=== PATIENT | male | born 1940 | race African-American/Black ===

== ENCOUNTER 2021-09-04 15:52 | Inpatient (IN) ==
[2021-09-04 16:32] LABS: Hematocrit 30 % (42-52); Mean Corpuscular HGB Conc 33 g/dL (31-36); Mean Corpuscular Hemoglobin 33 pg (27-31); Mean Corpuscular Volume 98 fL (80-94); Mean Platelet Volume 7.5 fL (7.4-10.4); Platelet Count 220 10^3/uL (150-450); Red Blood Count 3.08 10^6 /uL (4.18-5.48); Red Cell Distribution Width 15 % (10-15); White Blood Count 1.6 10^3/uL (3.5-10.8)
[2021-09-04 16:36] LABS: ABS Neutrophils 0.4 10^3/ul (1.5-7.7)
[2021-09-04 16:50] LABS: ABS Lymphocytes 0.6 10^3/ul (1.0-4.8); ABS Monocytes 0.6 10^3/ul (0-0.8); Eosinophil % 0.6 %; Lymphocyte % 37.7 %; Nucleated Red Blood Cells % 1.4
[2021-09-04 16:53] LABS: Albumin 3.5 g/dL (3.2-5.2); Albumin/Globulin Ratio 1.2 (1-3); C Reactive Protein 53.18 mg/L (<8.01); Calcium 8.9 mg/dL (8.6-10.3); Globulin 2.9 g/dL (2-4); Potassium 4.2 mmol/L (3.5-5.0); Total Bilirubin 0.6 mg/dL (0.2-1.0); Total Protein 6.4 g/dL (6.4-8.9); eGFR CKD-EPI 86.4 (>60)
[2021-09-04 16:54] LABS: Troponin I 0.01 ng/mL (<0.03)
[2021-09-04] MEDS ORDERED: Iodixanol (CONTRAST) 320 MG/ML 100 ML SDV IV ONE (17:25)
[2021-09-04] MEDS ORDERED: Azithromycin 500 mg/250 ml NS 500 MG/250 ML BAG IVPB ONE (18:28)
[2021-09-04] MEDS ORDERED: cefTRIAXone 1 gm/50 mL NS BAG 1 GM/50 ML BAG IVPB ONE (18:28)
[2021-09-04 18:34] LABS: PCO2 Arterial 49 mmHg (35-45)
[2021-09-04 19:02] LABS: PO2 Arterial 49 mmHg (80-100)
[2021-09-04] MEDS ORDERED: Ondansetron 4 mg VIAL 2 MG/ML 2 ml VIAL IV PRN (20:06)
[2021-09-04] MEDS ORDERED: Nystatin TOP POWDER 15 GM BTL TOPICAL PRN (20:10)
[2021-09-04] MEDS: Carbidopa/Levodop 25/100 MG TAB PO SCH (23:04)
[2021-09-04] MEDS: Aspirin EC 81 mg TAB.EC (enteric coated) PO SCH (23:04)
[2021-09-04] MEDS: Enoxaparin 40 MG/0.4 ML SYR SUBCUT SCH (23:04)
[2021-09-05 06:07] LABS: Hematocrit 29 % (42-52); Hemoglobin 9.6 g/dL (14.0-18.0); Mean Corpuscular HGB Conc 33 g/dL (31-36); Mean Corpuscular Hemoglobin 32 pg (27-31); Mean Corpuscular Volume 97 fL (80-94); Mean Platelet Volume 7.8 fL (7.4-10.4); Platelet Count 211 10^3/uL (150-450); Red Cell Distribution Width 15 % (10-15); White Blood Count 2.2 10^3/uL (3.5-10.8)
[2021-09-05 06:23] LABS: Calcium 8.5 mg/dL (8.6-10.3); eGFR CKD-EPI 87.6 (>60)
[2021-09-05 09:14] LABS: ABS Lymphocytes 1.1 10^3/ul (1.0-4.8); ABS Monocytes 0.8 10^3/ul (0-0.8); ABS Neutrophils 0.3 10^3/ul (1.5-7.7); Eosinophil % 0.4 %; Lymphocyte % 48.6 %
[2021-09-05] MEDS: Carbidopa/Levodop 25/100 MG TAB PO SCH ×3 (09:22→20:36)
[2021-09-05] MEDS: Azithromycin 500 mg/250 ml NS 500 MG/250 ML BAG IVPB SCH (20:30)
[2021-09-05] MEDS: Aspirin EC 81 mg TAB.EC (enteric coated) PO SCH (20:35)
[2021-09-05] MEDS: Enoxaparin 40 MG/0.4 ML SYR SUBCUT SCH (20:36)
[2021-09-05] MEDS: cefTRIAXone 2 GM ADDV.VIAL 2 GM in NS 0.9% 100 ml BAG 100 ML IV SCH (21:58)
[2021-09-06 08:10] LABS: Calcium 8.2 mg/dL (8.6-10.3); Magnesium 1.8 mg/dL (1.9-2.7); Phosphorus 3.1 mg/dL (2.5-5.0); Potassium 3.9 mmol/L (3.5-5.0); eGFR CKD-EPI 89.2 (>60)
[2021-09-06 08:27] LABS: Hematocrit 28 % (42-52); Hemoglobin 9.1 g/dL (14.0-18.0); Mean Corpuscular HGB Conc 33 g/dL (31-36); Mean Corpuscular Hemoglobin 32 pg (27-31); Mean Corpuscular Volume 97 fL (80-94); Mean Platelet Volume 7.7 fL (7.4-10.4); Platelet Count 217 10^3/uL (150-450); Red Blood Count 2.87 10^6 /uL (4.18-5.48); Red Cell Distribution Width 15 % (10-15); White Blood Count 2.4 10^3/uL (3.5-10.8)
[2021-09-06] MEDS ORDERED: Pneumococcal Vac 23-Polyvalent IM ONE (09:00)
[2021-09-06] MEDS ORDERED: Flu vaccine *QUAD* 2021-22* 0.5 ML SYRINGE IM ONE (09:00)
[2021-09-06 09:12] LABS: Hypochromasia 1+
[2021-09-06 09:13] LABS: Basophilic Stippling 2+; Polychromasia 2+
[2021-09-06 09:17] LABS: ABS Lymphocytes 1.1 10^3/ul (1.0-4.8); ABS Monocytes 0.9 10^3/ul (0-0.8); ABS Neutrophils 0.3 10^3/ul (1.5-7.7); Eosinophil % 0.2 %; Nucleated Red Blood Cells % 1.2
[2021-09-06] MEDS: Carbidopa/Levodop 25/100 MG TAB PO SCH ×3 (10:31→20:46)
[2021-09-06] MEDS: Azithromycin 500 mg/250 ml NS 500 MG/250 ML BAG IVPB SCH (19:42)
[2021-09-06] MEDS: Aspirin EC 81 mg TAB.EC (enteric coated) PO SCH (20:46)
[2021-09-06] MEDS: Enoxaparin 40 MG/0.4 ML SYR SUBCUT SCH (20:47)
[2021-09-06] MEDS: cefTRIAXone 2 GM ADDV.VIAL 2 GM in NS 0.9% 100 ml BAG 100 ML IV SCH (21:28)
[2021-09-07 05:46] LABS: Hematocrit 27 % (42-52); Hemoglobin 8.7 g/dL (14.0-18.0); Mean Corpuscular HGB Conc 32 g/dL (31-36); Mean Corpuscular Hemoglobin 31 pg (27-31); Mean Corpuscular Volume 97 fL (80-94); Platelet Count 214 10^3/uL (150-450); Red Blood Count 2.79 10^6 /uL (4.18-5.48); Red Cell Distribution Width 15 % (10-15); White Blood Count 2.4 10^3/uL (3.5-10.8)
[2021-09-07 05:58] LABS: ABS Monocytes 0.9 10^3/ul (0-0.8); ABS Neutrophils 0.4 10^3/ul (1.5-7.7); Eosinophil % 0.3 %; Lymphocyte % 43.2 %; Nucleated Red Blood Cells % 0.6
[2021-09-07 06:05] LABS: Calcium 8.2 mg/dL (8.6-10.3); Magnesium 1.9 mg/dL (1.9-2.7); Potassium 3.8 mmol/L (3.5-5.0); eGFR CKD-EPI 89.9 (>60)
[2021-09-07] MEDS: Carbidopa/Levodop 25/100 MG TAB PO SCH ×3 (08:03→20:22)
[2021-09-07] MEDS ORDERED: Iodixanol (CONTRAST) 320 MG/ML 100 ML SDV IV ONE (12:21)
[2021-09-07] MEDS: cefTRIAXone 2 GM ADDV.VIAL 2 GM in NS 0.9% 100 ml BAG 100 ML IV SCH (20:21)
[2021-09-07] MEDS: Enoxaparin 40 MG/0.4 ML SYR SUBCUT SCH (20:21)
[2021-09-07] MEDS: Aspirin EC 81 mg TAB.EC (enteric coated) PO SCH (20:22)
[2021-09-07] MEDS: Azithromycin 500 mg/250 ml NS 500 MG/250 ML BAG IVPB SCH (21:04)
[2021-09-08 06:19] LABS: Hematocrit 28 % (42-52); Mean Corpuscular HGB Conc 33 g/dL (31-36); Mean Corpuscular Hemoglobin 31 pg (27-31); Mean Corpuscular Volume 96 fL (80-94); Platelet Count 230 10^3/uL (150-450); Red Blood Count 2.88 10^6 /uL (4.18-5.48); Red Cell Distribution Width 15 % (10-15); White Blood Count 2.4 10^3/uL (3.5-10.8)
[2021-09-08 06:41] LABS: Magnesium 1.9 mg/dL (1.9-2.7); eGFR CKD-EPI 91.4 (>60)
[2021-09-08] MEDS: Carbidopa/Levodop 25/100 MG TAB PO SCH ×3 (08:19→21:05)
[2021-09-08 08:58] LABS: ABS Lymphocytes 0.9 10^3/ul (1.0-4.8); ABS Monocytes 0.7 10^3/ul (0-0.8); ABS Neutrophils 0.8 10^3/ul (1.5-7.7); Eosinophil % 0.4 %; Lymphocyte % 37.3 %; Nucleated Red Blood Cells % 0.6
[2021-09-08 09:11] LABS: RBC Morphology Normal (Normal)
[2021-09-08 11:40] LABS: PSA Screening Total 36.313 ng/mL (0-4.000)
[2021-09-08] MEDS: cefTRIAXone 2 GM ADDV.VIAL 2 GM in NS 0.9% 100 ml BAG 100 ML IV SCH (21:00)
[2021-09-08] MEDS: Aspirin EC 81 mg TAB.EC (enteric coated) PO SCH (21:05)
[2021-09-08] MEDS: Enoxaparin 40 MG/0.4 ML SYR SUBCUT SCH (21:05)
[2021-09-09 06:47] LABS: Hematocrit 28 % (42-52); Mean Corpuscular HGB Conc 32 g/dL (31-36); Mean Corpuscular Hemoglobin 31 pg (27-31); Mean Corpuscular Volume 97 fL (80-94); Mean Platelet Volume 6.8 fL (7.4-10.4); Platelet Count 243 10^3/uL (150-450); Red Blood Count 2.87 10^6 /uL (4.18-5.48); Red Cell Distribution Width 15 % (10-15); White Blood Count 3.2 10^3/uL (3.5-10.8)
[2021-09-09 06:51] LABS: ABS Monocytes 0.7 10^3/ul (0-0.8); ABS Neutrophils 1.5 10^3/ul (1.5-7.7); Eosinophil % 0.2 %; Lymphocyte % 30.5 %; Nucleated Red Blood Cells % 0.4
[2021-09-09 07:15] LABS: Calcium 8.3 mg/dL (8.6-10.3); Magnesium 1.9 mg/dL (1.9-2.7); eGFR CKD-EPI 92.6 (>60)
[2021-09-09] MEDS: Carbidopa/Levodop 25/100 MG TAB PO SCH ×3 (10:25→21:54)
[2021-09-09] MEDS ORDERED: Furosemide 20 mg/2 ml IV VIAL IV ONE (11:12)
[2021-09-09] MEDS: Aspirin EC 81 mg TAB.EC (enteric coated) PO SCH (21:54)
[2021-09-09] MEDS: Enoxaparin 40 MG/0.4 ML SYR SUBCUT SCH (21:54)
[2021-09-09] MEDS: cefTRIAXone 2 GM ADDV.VIAL 2 GM in NS 0.9% 100 ml BAG 100 ML IV SCH (21:58)
[2021-09-10] MEDS: Carbidopa/Levodop 25/100 MG TAB PO SCH ×3 (08:33→21:00)
[2021-09-10 08:48] LABS: Hematocrit 27 % (42-52); Hemoglobin 8.9 g/dL (14.0-18.0); Mean Corpuscular HGB Conc 33 g/dL (31-36); Mean Corpuscular Hemoglobin 31 pg (27-31); Mean Corpuscular Volume 96 fL (80-94); Platelet Count 262 10^3/uL (150-450); Red Blood Count 2.85 10^6 /uL (4.18-5.48); Red Cell Distribution Width 16 % (10-15); White Blood Count 4.4 10^3/uL (3.5-10.8)
[2021-09-10 09:13] LABS: Calcium 8.5 mg/dL (8.6-10.3); Magnesium 1.8 mg/dL (1.9-2.7); Potassium 3.8 mmol/L (3.5-5.0); eGFR CKD-EPI 89.9 (>60)
[2021-09-10 09:50] LABS: ABS Lymphocytes 0.9 10^3/ul (1.0-4.8); ABS Monocytes 0.7 10^3/ul (0-0.8); ABS Neutrophils 2.8 10^3/ul (1.5-7.7); Eosinophil % 0.3 %; Lymphocyte % 20.4 %; Nucleated Red Blood Cells % 0.5
[2021-09-10] MEDS: Aspirin EC 81 mg TAB.EC (enteric coated) PO SCH (21:00)
[2021-09-10] MEDS: cefTRIAXone 2 GM ADDV.VIAL 2 GM in NS 0.9% 100 ml BAG 100 ML IV SCH (21:00)
[2021-09-10] MEDS: Enoxaparin 40 MG/0.4 ML SYR SUBCUT SCH (21:00)
[2021-09-11 04:51] LABS: ABS Lymphocytes 0.6 10^3/ul (1.0-4.8); ABS Monocytes 0.2 10^3/ul (0-0.8); ABS Neutrophils 4.4 10^3/ul (1.5-7.7); Hematocrit 28 % (42-52); Hemoglobin 8.9 g/dL (14.0-18.0); Lymphocyte % 11.9 %; Mean Corpuscular HGB Conc 33 g/dL (31-36); Mean Corpuscular Hemoglobin 31 pg (27-31); Mean Corpuscular Volume 97 fL (80-94); Mean Platelet Volume 6.9 fL (7.4-10.4); Nucleated Red Blood Cells % 0.2; Platelet Count 280 10^3/uL (150-450); Red Blood Count 2.85 10^6 /uL (4.18-5.48); Red Cell Distribution Width 15 % (10-15); White Blood Count 5.3 10^3/uL (3.5-10.8)
[2021-09-11 05:05] LABS: Calcium 8.8 mg/dL (8.6-10.3); Magnesium 1.9 mg/dL (1.9-2.7); Potassium 4.2 mmol/L (3.5-5.0); eGFR CKD-EPI 91.4 (>60)
[2021-09-11] MEDS: Carbidopa/Levodop 25/100 MG TAB PO SCH ×3 (07:38→21:39)
[2021-09-11] MEDS: Albuterol HFA INHALER 8 gm MDI INH SCH ×2 (14:36→19:39)
[2021-09-11] MEDS: Aspirin EC 81 mg TAB.EC (enteric coated) PO SCH (21:38)
[2021-09-11] MEDS: Enoxaparin 40 MG/0.4 ML SYR SUBCUT SCH (21:38)
[2021-09-11] MEDS: cefTRIAXone 2 GM ADDV.VIAL 2 GM in NS 0.9% 100 ml BAG 100 ML IV SCH (21:57)
[2021-09-12 04:40] LABS: ABS Lymphocytes 1.1 10^3/ul (1.0-4.8); ABS Monocytes 0.6 10^3/ul (0-0.8); ABS Neutrophils 9.3 10^3/ul (1.5-7.7); Hematocrit 27 % (42-52); Hemoglobin 8.9 g/dL (14.0-18.0); Lymphocyte % 9.9 %; Mean Corpuscular HGB Conc 33 g/dL (31-36); Mean Corpuscular Hemoglobin 32 pg (27-31); Mean Corpuscular Volume 97 fL (80-94); Nucleated Red Blood Cells % 0.1; Platelet Count 291 10^3/uL (150-450); Red Blood Count 2.77 10^6 /uL (4.18-5.48); Red Cell Distribution Width 16 % (10-15); White Blood Count 11.1 10^3/uL (3.5-10.8)
[2021-09-12 04:58] LABS: Calcium 8.8 mg/dL (8.6-10.3); Potassium 4.3 mmol/L (3.5-5.0)
[2021-09-12] MEDS: Albuterol HFA INHALER 8 gm MDI INH SCH ×4 (08:03→19:45)
[2021-09-12] MEDS: Carbidopa/Levodop 25/100 MG TAB PO SCH ×3 (08:52→20:29)
[2021-09-12] MEDS: Aspirin EC 81 mg TAB.EC (enteric coated) PO SCH (20:30)
[2021-09-12] MEDS: Enoxaparin 40 MG/0.4 ML SYR SUBCUT SCH (20:31)
[2021-09-13 07:07] LABS: ABS Lymphocytes 1.2 10^3/ul (1.0-4.8); ABS Monocytes 0.5 10^3/ul (0-0.8); ABS Neutrophils 9.8 10^3/ul (1.5-7.7); Hematocrit 27 % (42-52); Hemoglobin 8.6 g/dL (14.0-18.0); Lymphocyte % 10.3 %; Mean Corpuscular HGB Conc 32 g/dL (31-36); Mean Corpuscular Hemoglobin 31 pg (27-31); Mean Corpuscular Volume 97 fL (80-94); Mean Platelet Volume 7.5 fL (7.4-10.4); Nucleated Red Blood Cells % 0.1; Platelet Count 314 10^3/uL (150-450); Red Blood Count 2.75 10^6 /uL (4.18-5.48); Red Cell Distribution Width 16 % (10-15); White Blood Count 11.5 10^3/uL (3.5-10.8)
[2021-09-13 07:24] LABS: Calcium 8.7 mg/dL (8.6-10.3); Magnesium 2.1 mg/dL (1.9-2.7); Potassium 4.4 mmol/L (3.5-5.0); eGFR CKD-EPI 89.2 (>60)
[2021-09-13] MEDS: Albuterol HFA INHALER 8 gm MDI INH SCH ×4 (07:45→19:45)
[2021-09-13] MEDS: Carbidopa/Levodop 25/100 MG TAB PO SCH ×3 (09:07→20:03)
[2021-09-13] MEDS: Aspirin EC 81 mg TAB.EC (enteric coated) PO SCH (20:03)
[2021-09-13] MEDS: Enoxaparin 40 MG/0.4 ML SYR SUBCUT SCH (20:03)
[2021-09-14 06:13] LABS: Hematocrit 29 % (42-52); Hemoglobin 9.2 g/dL (14.0-18.0); Mean Corpuscular HGB Conc 32 g/dL (31-36); Mean Corpuscular Hemoglobin 31 pg (27-31); Mean Corpuscular Volume 97 fL (80-94); Mean Platelet Volume 7.5 fL (7.4-10.4); Platelet Count 330 10^3/uL (150-450); Red Blood Count 2.96 10^6 /uL (4.18-5.48); Red Cell Distribution Width 16 % (10-15); White Blood Count 12.7 10^3/uL (3.5-10.8)
[2021-09-14 06:24] LABS: ABS Monocytes 0.4 10^3/ul (0-0.8); ABS Neutrophils 11.3 10^3/ul (1.5-7.7); Lymphocyte % 7.6 %; Nucleated Red Blood Cells % 0.1
[2021-09-14 06:30] LABS: Calcium 8.9 mg/dL (8.6-10.3); Magnesium 2.2 mg/dL (1.9-2.7); Potassium 4.3 mmol/L (3.5-5.0); eGFR CKD-EPI 87.3 (>60)
[2021-09-14] MEDS: Albuterol HFA INHALER 8 gm MDI INH SCH ×4 (07:13→19:26)
[2021-09-14] MEDS: Carbidopa/Levodop 25/100 MG TAB PO SCH ×3 (10:33→20:49)
[2021-09-14] MEDS: Aspirin EC 81 mg TAB.EC (enteric coated) PO SCH (20:48)
[2021-09-14] MEDS: Enoxaparin 40 MG/0.4 ML SYR SUBCUT SCH (20:50)
[2021-09-14] MEDS ORDERED: Polyethylene Glycol 3350 17 GM PACKET PO PRN (22:05)
[2021-09-14] MEDS ORDERED: Senna TAB 8.6 mg TAB PO PRN (22:05)
[2021-09-15 06:23] LABS: ABS Lymphocytes 0.7 10^3/ul (1.0-4.8); ABS Monocytes 0.2 10^3/ul (0-0.8); ABS Neutrophils 11.4 10^3/ul (1.5-7.7); Hematocrit 31 % (42-52); Hemoglobin 10.1 g/dL (14.0-18.0); Lymphocyte % 6.1 %; Mean Corpuscular HGB Conc 33 g/dL (31-36); Mean Corpuscular Hemoglobin 32 pg (27-31); Mean Corpuscular Volume 97 fL (80-94); Mean Platelet Volume 7.4 fL (7.4-10.4); Nucleated Red Blood Cells % 0.1; Platelet Count 348 10^3/uL (150-450); Red Blood Count 3.19 10^6 /uL (4.18-5.48); Red Cell Distribution Width 16 % (10-15); White Blood Count 12.3 10^3/uL (3.5-10.8)
[2021-09-15 06:40] LABS: Calcium 8.8 mg/dL (8.6-10.3); Potassium 4.1 mmol/L (3.5-5.0); eGFR CKD-EPI 88.6 (>60)
[2021-09-15] MEDS: Albuterol HFA INHALER 8 gm MDI INH SCH ×3 (07:27→14:57)
[2021-09-15] MEDS: Carbidopa/Levodop 25/100 MG TAB PO SCH ×2 (08:39→13:58)
[2021-09-15 12:19] VITALS: BP 108/54
== END 2021-09-15 15:10 | disposition home or self-care (01) | DRG 139 ==
LOC: ED 15:52 → EDHOLD 20:06 → SUATTDRO 20:06 → MEDTELE 09-05 00:06
PROVIDERS: ADMIT Student in an Organized Health Care Education/Training Program; ATTEND Internal Medicine

== ENCOUNTER 2022-03-14 15:43 | Inpatient (IN) ==
[2022-03-14 16:14] LABS: ABS Basophils 0.1 10^3/ul (0-0.2); ABS Eosinophils 1.6 10^3/ul (0-0.6); ABS Lymphocytes 0.6 10^3/ul (1.0-4.8); ABS Monocytes 0.6 10^3/ul (0-0.8); Eosinophil % 17.7 %; Hematocrit 33 % (42-52); Hemoglobin 10.3 g/dL (14.0-18.0); Lymphocyte % 6.3 %; Mean Corpuscular HGB Conc 32 g/dL (31-36); Mean Corpuscular Hemoglobin 30 pg (27-31); Mean Corpuscular Volume 94 fL (80-94); Mean Platelet Volume 8.3 fL (7.4-10.4); Platelet Count 127 10^3/uL (150-450); Red Blood Count 3.49 10^6 /uL (4.18-5.48); Red Cell Distribution Width 15 % (10-15); White Blood Count 8.8 10^3/uL (3.5-10.8)
[2022-03-14 16:20] LABS: INR 1.14 (0.86-1.15)
[2022-03-14 16:58] LABS: Albumin 3.8 g/dL (3.2-5.2); Albumin/Globulin Ratio 1.5 (1-3); Calcium 8.8 mg/dL (8.6-10.3); Globulin 2.6 g/dL (2-4); Potassium 4.3 mmol/L (3.5-5.0); Total Bilirubin 0.5 mg/dL (0.2-1.0); Total Protein 6.4 g/dL (6.4-8.9)
[2022-03-14] MEDS ORDERED: Azithromycin 500 mg/250 ml NS 500 MG/250 ML BAG IVPB ONE (17:02)
[2022-03-14] MEDS ORDERED: cefTRIAXone 1 gm/50 mL D5W 1 GM/50 ML BAG IV ONE (17:02)
[2022-03-14 17:28] LABS: High Sensitivity Troponin 1 Hr 11 pg/mL (<20)
[2022-03-14] MEDS ORDERED: Piperacillin/Tazobac ADVAN 3.375 GM in NS 0.9% 100 ml BAG 100 ML IV ONE (18:46)
[2022-03-14] MEDS ORDERED: methylPREDNISolone SOD SUCC 125 mg 2 ML VIAL IV ONE (18:49)
[2022-03-14] MEDS ORDERED: Furosemide 40 mg/4 ml IV VIAL IV ONE (18:49)
[2022-03-14] MEDS ORDERED: Iohexol 350 (CONTRAST) 500 ML MDV IV ONE (18:54)
[2022-03-14] MEDS ORDERED: Zosyn per Pharmacy NOTE FOLLOW UP SCH (19:00)
[2022-03-14 19:50] LABS: Urine Appearance Clear; Urine Bilirubin Negative (Negative); Urine Blood Negative (Negative); Urine Color Straw; Urine Glucose Negative (Negative); Urine Ketones Negative (Negative); Urine Nitrite Negative (Negative); Urine Protein Negative (Negative); Urine Specific Gravity 1.014 (1.002-1.030); Urine Urobilinogen Negative (Negative)
[2022-03-14] MEDS ORDERED: Nystatin TOP POWDER 15 GM BTL TOPICAL PRN (20:07)
[2022-03-14] MEDS: Heparin 5000 UNITS/ML 1 mL VIAL SUBCUT SCH (21:54)
[2022-03-14] MEDS: Carbidopa/Levodop 25/100 MG TAB PO SCH (22:27)
[2022-03-15] MEDS ORDERED: ZOSYN 3.375 GM x ONE DOSE over 30 miuntes IV (01:00)
[2022-03-15] MEDS ORDERED: Piperacillin/Tazobac 3.375 GM BAG ONE (01:22)
[2022-03-15] MEDS: Heparin 5000 UNITS/ML 1 mL VIAL SUBCUT SCH (05:28)
[2022-03-15 05:35] LABS: ABS Lymphocytes 0.4 10^3/ul (1.0-4.8); ABS Monocytes 0.1 10^3/ul (0-0.8); ABS Neutrophils 3.3 10^3/ul (1.5-7.7); Eosinophil % 0.3 %; Hematocrit 29 % (42-52); Hemoglobin 9.2 g/dL (14.0-18.0); Lymphocyte % 10.2 %; Mean Corpuscular HGB Conc 32 g/dL (31-36); Mean Corpuscular Hemoglobin 30 pg (27-31); Mean Corpuscular Volume 94 fL (80-94); Mean Platelet Volume 8.5 fL (7.4-10.4); Nucleated Red Blood Cells % 0.1; Platelet Count 132 10^3/uL (150-450); Red Blood Count 3.06 10^6 /uL (4.18-5.48); Red Cell Distribution Width 14 % (10-15); White Blood Count 3.8 10^3/uL (3.5-10.8)
[2022-03-15] MEDS ORDERED: Heparin 5000 UNITS/ML 1 mL VIAL IV SCH (06:00)
[2022-03-15 06:25] LABS: Calcium 8.4 mg/dL (8.6-10.3); Potassium 3.9 mmol/L (3.5-5.0); eGFR CKD-EPI 87.9 (>60)
[2022-03-15 08:21] LABS: Magnesium 1.7 mg/dL (1.9-2.7)
[2022-03-15] MEDS ORDERED: Magnesium Sulfate IV 3 GM in NS 0.9% 100 ml BAG 100 ML IVPB ONE (08:45)
[2022-03-15] MEDS ORDERED: Furosemide 40 mg/4 ml IV VIAL IV SCH (09:00)
[2022-03-15] MEDS ORDERED: ED ONCE IVPB ONE (09:00)
[2022-03-15] MEDS ORDERED: MAGNESIUM SULFATE 2 GM IVPB ONE (09:00)
[2022-03-15] MEDS: Heparin DRIP 25,000 UNITS BAG 25,000 UNITS/500 ML BAG IV SCH ×2 (09:05→20:10)
[2022-03-15] MEDS ORDERED: Magnesium Sulfate 1 GM IV 1 GM/100 ML BAG IV ONE (10:00)
[2022-03-15] MEDS: Carbidopa/Levodop 25/100 MG TAB PO SCH ×3 (12:26→21:14)
[2022-03-15] MEDS: CMCS: Darifenacin 15 mg ER TAB (NF) PO SCH (12:27)
[2022-03-15 12:30] LABS: ABS Lymphocytes 0.6 10^3/ul (1.0-4.8); ABS Monocytes 0.4 10^3/ul (0-0.8); ABS Neutrophils 4.8 10^3/ul (1.5-7.7); Eosinophil % 0.4 %; Hematocrit 32 % (42-52); Lymphocyte % 10.7 %; Mean Corpuscular HGB Conc 32 g/dL (31-36); Mean Corpuscular Hemoglobin 30 pg (27-31); Mean Corpuscular Volume 94 fL (80-94); Mean Platelet Volume 7.8 fL (7.4-10.4); Platelet Count 137 10^3/uL (150-450); Red Blood Count 3.37 10^6 /uL (4.18-5.48); Red Cell Distribution Width 15 % (10-15); White Blood Count 5.8 10^3/uL (3.5-10.8)
[2022-03-15 13:42] LABS: eGFR CKD-EPI 88.9 (>60)
[2022-03-15] MEDS ORDERED: ZOSYN 3.375 GM Q8H per EXTENDED INFUSION IV SCH (16:00)
[2022-03-16 06:26] LABS: ABS Eosinophils 0.1 10^3/ul (0-0.6); ABS Lymphocytes 0.8 10^3/ul (1.0-4.8); ABS Monocytes 0.5 10^3/ul (0-0.8); ABS Neutrophils 6.5 10^3/ul (1.5-7.7); Eosinophil % 0.6 %; Hematocrit 30 % (42-52); Hemoglobin 9.4 g/dL (14.0-18.0); Lymphocyte % 10.8 %; Mean Corpuscular HGB Conc 32 g/dL (31-36); Mean Corpuscular Hemoglobin 30 pg (27-31); Mean Corpuscular Volume 93 fL (80-94); Mean Platelet Volume 7.6 fL (7.4-10.4); Platelet Count 168 10^3/uL (150-450); Red Blood Count 3.16 10^6 /uL (4.18-5.48); Red Cell Distribution Width 15 % (10-15); White Blood Count 7.9 10^3/uL (3.5-10.8)
[2022-03-16 07:11] LABS: Calcium 8.2 mg/dL (8.6-10.3); Magnesium 2.2 mg/dL (1.9-2.7); Potassium 3.7 mmol/L (3.5-5.0); eGFR CKD-EPI 87.9 (>60)
[2022-03-16] MEDS: Carbidopa/Levodop 25/100 MG TAB PO SCH ×3 (08:25→20:30)
[2022-03-16] MEDS: CMCS: Darifenacin 15 mg ER TAB (NF) PO SCH (08:30)
[2022-03-17 05:45] LABS: ABS Basophils 0.1 10^3/ul (0-0.2); ABS Eosinophils 1.8 10^3/ul (0-0.6); ABS Lymphocytes 1.4 10^3/ul (1.0-4.8); ABS Monocytes 0.7 10^3/ul (0-0.8); ABS Neutrophils 3.6 10^3/ul (1.5-7.7); Eosinophil % 23.7 %; Hematocrit 31 % (42-52); Lymphocyte % 18.2 %; Mean Corpuscular HGB Conc 32 g/dL (31-36); Mean Corpuscular Hemoglobin 30 pg (27-31); Mean Corpuscular Volume 93 fL (80-94); Mean Platelet Volume 7.8 fL (7.4-10.4); Nucleated Red Blood Cells % 0.1; Platelet Count 184 10^3/uL (150-450); Red Blood Count 3.36 10^6 /uL (4.18-5.48); Red Cell Distribution Width 14 % (10-15); White Blood Count 7.5 10^3/uL (3.5-10.8)
[2022-03-17 06:08] LABS: Calcium 8.1 mg/dL (8.6-10.3); Potassium 3.8 mmol/L (3.5-5.0); eGFR CKD-EPI 89.6 (>60)
[2022-03-17] MEDS: Carbidopa/Levodop 25/100 MG TAB PO SCH ×2 (11:00→14:50)
[2022-03-17] MEDS: CMCS: Darifenacin 15 mg ER TAB (NF) PO SCH (11:00)
[2022-03-17 17:08] VITALS: BP 108/57
== END 2022-03-17 18:15 | disposition home or self-care (01) | DRG 134 ==
LOC: ED 15:43 → EDHOLD 18:52 → SUATTDRO 18:52 → EDHOLD 03-15 09:50 → MED 03-15 10:02
PROVIDERS: ADMIT Internal Medicine; ATTEND Internal Medicine